=== PATIENT | male | born 1995 | race Hispanic/Latino ===

== ENCOUNTER 2018-07-29 13:06 | Emergency (ER) | payer SELFPAY ==
[2018-07-29 13:18] VITALS: BP 138/90; TEMP 99.1; O2SAT 98
--- NOTE | 2018-07-29 14:10 | ED.PDOC ---
History of Present Illness - General Chief Complaint: Problem Stated Complaint: Skin irritation Time Seen by Provider: 07/29/18 14:08 Source: patient Exam Limitations: no limitations - History of Present Illness Initial Comments: PT REPORTS LESIONS TO PENIS FOR THE PAST FEW DAYS AFTER RECEIVING ORAL SEX FROM ANOTHER MALE. PT REPORTS LESIONS AROSE JUST HOURS AFTER SEXUAL ENCOUNTER. PT WAS TOLD BY PCP HE HAD CONTRACTED A STI AND WOULD NEED THE LESIONS "BURNED OFF WITH ACID". PT WAS GIVEN A SHOT IN THE OFFICE AND SENT HOME ON DOXYCYCLINE FOR 10 DAYS. PT PRESENTS TODAY FOR DEFINITIVE STD TESTING. Allergies/Adverse Reactions: Allergies NO KNOWN ALLERGY Allergy (Verified 07/29/18 13:17) Home Medications: Ambulatory Orders Doxycycline (Monohydrate) [Doxycycline] 100 mg PO BID 07/29/18 Review of Systems - Review of Systems Constitutional: Denies: chills, fever EENTM: Denies: nose congestion, throat pain Respiratory: Denies: cough, short of breath Cardiology: Denies: chest pain, palpitations Gastrointestinal/Abdominal: Denies: nausea, vomiting Genitourinary: Denies: discharge, dysuria, frequency, hematuria, pain Musculoskeletal: Denies: joint pain, joint swelling Past Medical History (General) - Patient Medical History Hx Stroke: No Hx Congestive Heart Failure: No Hx Diabetes: No - Vaccination History Hx Tetanus, Diphtheria Vaccination: No Hx Influenza Vaccination: No Hx Pneumococcal Vaccination: No - Social History Hx Tobacco Use: No Hx Alcohol Use: No Hx Substance Use: No Family Medical History - Family History Father Family History: No Known Living Status: Still Living Physical Exam - Physical Exam General Appearance: Alert, No apparent distress, Well Developed, Well Groomed, Well Hydrated Eyes, Ears, Nose, Throat Exam: normal ENT inspection Neck: full range of motion, supple Cardiovascular/Respiratory: no respiratory distress Male Genital Exam: normal genitalia, lesions - SMALL PUSTULES ON HEAD AND SHAFT OF PENIS. PUSTULES ON SHAFT APPEAR TO BE GROUPED TOGETHER, NO PENILE DISCHARGE. Departure - Departure Clinical Impression: Lesion of penis, Screening for STD (sexually transmitted disease) Time of Disposition: 14:08 Disposition: Discharge to Home or Self Care Condition: Good Departure Forms: ED Discharge - Pt. Copy, Patient Portal Self Enrollment Instructions: Screening for Sexually Transmitted Infections Referrals: DIEGO FERNANDEZ [Referring] - 1-5 Days Home Medications: Ambulatory Orders Doxycycline (Monohydrate) [Doxycycline] 100 mg PO BID 07/29/18
== END 2018-07-29 15:00 | disposition home or self-care (01) ==
LOC: ER 13:06
DX: Z11.3 Encounter for screening for infections with a predominantly sexual mode of transmission (principal); L98.9 Disorder of the skin and subcutaneous tissue, unspecified